=== PATIENT | male | born 1985 | race Caucasian/White ===

== ENCOUNTER 2020-10-10 21:25 | Inpatient (IN) | payer MEDICAID, OTHER ==
[~2020-10-10] VITALS: Ht 165.1 cm; Wt 61.5 kg
[2020-10-10] MEDS ORDERED: SITA25 PO (22:04)
[2020-10-10] MEDS ORDERED: LISI-661 PO (22:04)
[2020-10-10 22:20] LABS: GLUCOSE,POINT OF CARE 247 MG/DL (70-110)
[2020-10-10 22:58] LABS: BASOPHILS % (AUTO) 0.3 % (0.0-2.0); EOSINOPHILS % (AUTO) 1.5 % (1.0-6.0); HEMATOCRIT 39.4 % (41-53); HEMOGLOBIN 13.3 g/dL (13.5-17.5); LYMPHOCYTES # (AUTO) 1.6 K/uL (1.0-4.8); LYMPHOCYTES % (AUTO) 16.7 % (22.0-44.0); MEAN CORPUSCULAR HEMOGLOBIN 31.4 pg (26.0-34.0); MEAN CORPUSCULAR HGB CONC 33.8 G/dL (31.0-37.0); MEAN CORPUSCULAR VOLUME 93 fL (80-100); MONOCYTES # (AUTO) 0.5 K/uL (0.1-1.0); MONOCYTES % (AUTO) 5.6 % (2.0-9.0); NEUTROPHILS # (AUTO) 7.1 K/uL (1.8-7.7); NEUTROPHILS % (AUTO) 75.9 % (40.0-70.0); PLATELET COUNT (AUTO) 339 K/uL (150-450); RED BLOOD CELL COUNT(AUTO) 4.24 MIL/uL (4.50-5.90)
[2020-10-10] MEDS ORDERED: IBUPROFEN 600 MG TABLET PO ONE (23:00)
[2020-10-10] MEDS ORDERED: ACETAMINOPHEN 500 MG TABLET PO ONE (23:00)
[2020-10-10 23:09] LABS: ANION GAP 8 mmol/L (8-16); CALCIUM, TOTAL 9.7 mg/dL (8.8-10.5); CARBON DIOXIDE 26 mmol/L (22-29); CHLORIDE 102 mmol/L (98-107); CREATININE 1.79 mg/dL (0.60-1.30); GLOMERULAR FILTR. RATE CALC 44 mL/min (>60); GLUCOSE,RANDOM 234 mg/dL (70-110); POTASSIUM 4.4 mmol/L (3.5-5.1); SODIUM SERUM 136 mmol/L (136-145); UREA NITROGEN, BLOOD 23 mg/dL (7-18)
[2020-10-10 23:15] LABS: ALANINE AMINOTRANSFERASE 20 U/L (12-78); ALBUMIN 3.5 g/dL (3.4-5.0); ALKALINE PHOSPHATASE 114 U/L (46-116); ASPARTATE AMINOTRANSFERASE 10 U/L (15-37); BILIRUBIN,TOTAL 0.2 mg/dL (0.1-1.0); TOTAL PROTEIN, SERUM 8.7 g/dL (6.4-8.2)
[2020-10-10] MEDS ORDERED: ZOLPIDEM TARTRATE 10 MG TABLET PO PRN (23:15)
[2020-10-10] MEDS ORDERED: LORazepam 2 MG TABLET PO PRN (23:15)
[2020-10-10] MEDS ORDERED: QUEtiapine FUMARATE 100 MG TABLET PO PRN (23:15)
[2020-10-10 23:31] LABS: AMPHET/METH SCREEN,URINE NEGATIVE (NEGATIVE); BARBITURATE SCREEN, URINE NEGATIVE (NEGATIVE); BENZODIAZEPINES SCREEN,URINE NEGATIVE (NEGATIVE); CANNABINOID SCREEN,URINE POSITIVE (NEGATIVE); COCAINE SCREEN,URINE POSITIVE (NEGATIVE); METHADONE SCREEN, URINE NEGATIVE (NEGATIVE); OPIATE SCREEN,URINE NEGATIVE (NEGATIVE)
[2020-10-10 23:32] LABS: PHENCYCLIDINE SCREEN,URINE NEGATIVE (NEGATIVE)
[2020-10-11 00:25] LABS: COVID AG,FIA SOURCE NASOPHARYNGEAL
[2020-10-11 03:03] LABS: CHOL/HDL RATIO 3.7 (4.2-7.3); CHOLESTEROL 119 mg/dL (131-200); HDL CHOLESTEROL 32 mg/dL (40-60); LDL CHOL (CALC.) 69 mg/dL (0-130); TRIGLYCERIDES 91 mg/dL (15-150)
[2020-10-11 03:18] LABS: APPEARANCE,URINE CLEAR (CLEAR); BILIRUBIN,URINE NEGATIVE (NEGATIVE); GLUCOSE, URINE (UA) >=1000 mg/dL (NEGATIVE); KETONES,URINE NEGATIVE (NEGATIVE); LEUKOCYTE ESTERASE ,URINE NEGATIVE (NEGATIVE); NITRATE,URINE NEGATIVE (NEGATIVE); OCCULT BLOOD,URINE NEGATIVE (NEGATIVE); PH,URINE 6.5 (5.0-8.0); PROTEIN,URINE TRACE (NEGATIVE); UROBILINOGEN,URINE 0.2 mg/dL (<=1.0)
[2020-10-11 03:49] LABS: BACTERIA,URINE None Seen /HPF (None Seen); RBC,URINE 0-2 /HPF (0-2); SQUAMOUS EPITHELIAL CELL,UR Rare /LPF (None Seen); WBC,URINE 0-2 /HPF (0-5)
[2020-10-11 04:08] VITALS: BP 140/94
[2020-10-11] MEDS ORDERED: PNEUMOCOCCAL VACCINE POLYVALENT 0.5 ML VIAL [PPSV23] IM ONE (06:30)
[2020-10-11] MEDS ORDERED: INFLUENZA VIRUS VACCINE QVS 2020-21 (6MO+)/PF 60 MCG/0.5 ML SYRINGE IM ONE (06:30)
[2020-10-11] MEDS ORDERED: DEXTROSE 50%-WATER 25 GM/50 ML SYRINGE IVP PRN (06:45)
[2020-10-11 07:14] LABS: GLUCOMETER DEV NAME(LOC) 3E.C; GLUCOSE,POINT OF CARE 139 MG/DL (70-110)
[2020-10-11] MEDS: INSULIN LISPRO 100 UNITS/ML SQ PRN ×3 (07:18→21:44)
[2020-10-11] MEDS ORDERED: ACETAMINOPHEN 325 MG TABLET PO PRN (07:30)
[2020-10-11] MEDS ORDERED: LOPERAMIDE HCL 2 MG CAPSULE PO PRN (07:30)
[2020-10-11] MEDS ORDERED: GuaiFENesin/D-METHORPHAN [SUGAR-FREE] 200-20MG/10 ML SYRUP UDCUP PO PRN (07:30)
[2020-10-11] MEDS ORDERED: NICOTINE 14 MG/24 HOUR PATCH TD PRN (07:30)
[2020-10-11] MEDS ORDERED: ALBUTEROL SULFATE HFA 90 MCG/PUFF 8 GM INHALER IH PRN (07:30)
[2020-10-11] MEDS ORDERED: PETROLATUM,WHITE 28 GM JELLY TP PRN (07:30)
[2020-10-11] MEDS ORDERED: ONDANSETRON HCL 4 MG TABLET PO PRN (07:30)
[2020-10-11] MEDS ORDERED: DOCUSATE SODIUM 100 MG CAPSULE PO PRN (07:30)
[2020-10-11] MEDS ORDERED: MAGNESIUM HYDROXIDE SUSPENSION 30 ML UDCUP PO PRN (07:30)
[2020-10-11] MEDS ORDERED: CloNIDine HCL 0.1 MG TABLET PO PRN (07:30)
[2020-10-11] MEDS ORDERED: MAG HYDROX/AL HYDROX/SIMETH ES 30 ML SUSPENSION UDCUP PO PRN (07:30)
[2020-10-11] MEDS ORDERED: IBUPROFEN 400 MG TABLET PO PRN (07:30)
[2020-10-11 08:00] VITALS: BP 126/77
[2020-10-11 10:56] LABS: GLUCOMETER DEV NAME(LOC) 3E.C; GLUCOSE,POINT OF CARE 190 MG/DL (70-110)
[2020-10-11] MEDS: ESCITALOPRAM OXALATE 10 MG TABLET PO SCH (12:00)
[2020-10-11] MEDS: CIPROFLOXACIN HCL 0.3% 2.5 ML OPHTHALMIC SOLUTION OD SCH ×2 (12:27→16:40)
[2020-10-11 16:46] LABS: GLUCOMETER DEV NAME(LOC) 3E.C; GLUCOSE,POINT OF CARE 123 MG/DL (70-110)
[2020-10-11 17:11] VITALS: BP 113/62
[2020-10-11 20:46] LABS: GLUCOMETER DEV NAME(LOC) 3E.C; GLUCOSE,POINT OF CARE 168 MG/DL (70-110)
[2020-10-12 03:35] VITALS: BP 127/80
[2020-10-12 06:09] LABS: GLUCOMETER DEV NAME(LOC) 3E.C; GLUCOSE,POINT OF CARE 124 MG/DL (70-110)
[2020-10-12] MEDS: INSULIN LISPRO 100 UNITS/ML SQ PRN ×4 (07:05→21:17)
[2020-10-12 08:00] VITALS: BP 146/94
[2020-10-12 09:00] LABS: BASOPHILS % (AUTO) 0.5 % (0.0-2.0); EOSINOPHILS % (AUTO) 3.9 % (1.0-6.0); HEMATOCRIT 35.7 % (41-53); LYMPHOCYTES # (AUTO) 1.9 K/uL (1.0-4.8); LYMPHOCYTES % (AUTO) 32.8 % (22.0-44.0); MEAN CORPUSCULAR HEMOGLOBIN 31.2 pg (26.0-34.0); MEAN CORPUSCULAR HGB CONC 33.5 G/dL (31.0-37.0); MEAN CORPUSCULAR VOLUME 93 fL (80-100); MONOCYTES # (AUTO) 0.4 K/uL (0.1-1.0); MONOCYTES % (AUTO) 6.3 % (2.0-9.0); NEUTROPHILS # (AUTO) 3.3 K/uL (1.8-7.7); NEUTROPHILS % (AUTO) 56.5 % (40.0-70.0); PLATELET COUNT (AUTO) 306 K/uL (150-450); RED BLOOD CELL COUNT(AUTO) 3.84 MIL/uL (4.50-5.90); RED CELL DISTRIBUTION WIDTH 12.8 % (11.5-14.5)
[2020-10-12] MEDS: SitaGLIPtin PHOSPHATE 25 MG TABLET PO SCH (10:11)
[2020-10-12] MEDS: ESCITALOPRAM OXALATE 10 MG TABLET PO SCH (10:12)
[2020-10-12] MEDS: CIPROFLOXACIN HCL 0.3% 2.5 ML OPHTHALMIC SOLUTION OD SCH ×3 (10:13→16:49)
[2020-10-12] MEDS: MULTIVITAMINS WITH MINERALS, THERAPEUTIC TABLET PO SCH (10:22)
[2020-10-12 11:25] LABS: GLUCOMETER DEV NAME(LOC) 3E.C; GLUCOSE,POINT OF CARE 195 MG/DL (70-110)
[2020-10-12 16:51] LABS: GLUCOMETER DEV NAME(LOC) 3E.C; GLUCOSE,POINT OF CARE 158 MG/DL (70-110)
[2020-10-12 17:17] VITALS: BP 122/80
[2020-10-12 21:04] LABS: GLUCOMETER DEV NAME(LOC) 3E.C; GLUCOSE,POINT OF CARE 232 MG/DL (70-110)
[2020-10-13] MEDS: INSULIN LISPRO 100 UNITS/ML SQ PRN ×4 (07:13→21:11)
[2020-10-13 07:54] LABS: GLUCOMETER DEV NAME(LOC) 3E.C; GLUCOSE,POINT OF CARE 137 MG/DL (70-110)
[2020-10-13 08:00] VITALS: BP 152/77
[2020-10-13] MEDS: CIPROFLOXACIN HCL 0.3% 2.5 ML OPHTHALMIC SOLUTION OD SCH ×3 (11:44→16:45)
[2020-10-13] MEDS: SitaGLIPtin PHOSPHATE 25 MG TABLET PO SCH (11:44)
[2020-10-13] MEDS: MULTIVITAMINS WITH MINERALS, THERAPEUTIC TABLET PO SCH (11:46)
[2020-10-13] MEDS: ESCITALOPRAM OXALATE 10 MG TABLET PO SCH (11:48)
[2020-10-13 11:54] LABS: GLUCOMETER DEV NAME(LOC) 3E.C; GLUCOSE,POINT OF CARE 225 MG/DL (70-110)
[2020-10-13 16:00] VITALS: BP 153/85
[2020-10-13 17:20] LABS: GLUCOMETER DEV NAME(LOC) 3E.C; GLUCOSE,POINT OF CARE 327 MG/DL (70-110)
[2020-10-13 21:17] LABS: GLUCOMETER DEV NAME(LOC) 3E.C; GLUCOSE,POINT OF CARE 141 MG/DL (70-110)
[2020-10-14 06:20] LABS: GLUCOMETER DEV NAME(LOC) 3E.C; GLUCOSE,POINT OF CARE 148 MG/DL (70-110)
[2020-10-14] MEDS: INSULIN LISPRO 100 UNITS/ML SQ PRN ×2 (07:08→12:18)
[2020-10-14 08:13] VITALS: BP 144/103
[2020-10-14] MEDS ORDERED: ESCI-8 PO (09:54)
[2020-10-14] MEDS ORDERED: CILO2.5OS OD (09:55)
[2020-10-14] MEDS: CIPROFLOXACIN HCL 0.3% 2.5 ML OPHTHALMIC SOLUTION OD SCH ×2 (10:26→13:00)
[2020-10-14] MEDS: SitaGLIPtin PHOSPHATE 25 MG TABLET PO SCH (10:27)
[2020-10-14] MEDS: ESCITALOPRAM OXALATE 10 MG TABLET PO SCH (10:28)
[2020-10-14] MEDS: MULTIVITAMINS WITH MINERALS, THERAPEUTIC TABLET PO SCH (10:29)
[2020-10-14 12:11] LABS: GLUCOMETER DEV NAME(LOC) 3E.C; GLUCOSE,POINT OF CARE 225 MG/DL (70-110)
== END 2020-10-14 14:35 | disposition home or self-care (01) | DRG 751 ==
LOC: EMS 21:25 → 3EC 10-11 01:35
DX: F33.2 Major depressive disorder, recurrent severe without psychotic features (principal); R45.851 Suicidal ideations; H10.9 Unspecified conjunctivitis; F14.10 Cocaine abuse, uncomplicated; F12.10 Cannabis abuse, uncomplicated; E11.65 Type 2 diabetes mellitus with hyperglycemia; I12.9 Hypertensive chronic kidney disease with stage 1 through stage 4 chronic kidney disease, or unspecified chronic kidney disease; N18.9 Chronic kidney disease, unspecified; Z79.899 Other long term (current) drug therapy; Z81.8 Family history of other mental and behavioral disorders; Z20.828 Contact with and (suspected) exposure to other viral communicable diseases; Z83.3 Family history of diabetes mellitus; Z63.4 Disappearance and death of family member; S62.306A Unspecified fracture of fifth metacarpal bone, right hand, initial encounter for closed fracture; E11.22 Type 2 diabetes mellitus with diabetic chronic kidney disease; X58.XXXA Exposure to other specified factors, initial encounter; Y93.89 Activity, other specified; Y92.89 Other specified places as the place of occurrence of the external cause; Y99.8 Other external cause status
CPT/HCPCS: 83036; 87426; 90686; G0480